=== PATIENT | female | born 1935 | race Caucasian/White ===

== ENCOUNTER 2020-06-04 12:54 | Inpatient (IN) ==
[2020-06-04] MEDS ORDERED: Ondansetron ODT 4 MG TAB.RAPDIS SL PRN (21:24)
[2020-06-04] MEDS: Acetaminophen 325 MG TABLET PO PRN (23:37)
[2020-06-05 06:09] LABS: Basophils % 0.4 %; Eosinophils # 0.3 K/mcL (0.0-0.6); Eosinophils % 4.3 %; Hematocrit 35.9 % (35.3-44.9); Hemoglobin 11.5 g/dL (11.5-15.4); Immature Granulocytes % 0.7 % (0-4); Lymphocytes # 1.4 K/mcL (0.6-4.6); Lymphocytes % 18.3 %; Mean Corpuscular Hemoglobin 30.3 pg (28.0-33.3); Mean Corpuscular Volume 94.7 fL (83.0-100.0); Mean Platelet Volume 11.4 fL (9.4-12.4); Monocytes # 0.7 K/mcL (0.0-1.3); Platelet Count 237 K/mcL (140-400); Red Blood Count 3.79 M/mcL (3.82-4.97); Red Cell Distribution Width 12.9 % (11.5-14.5); Segmented Neutrophils % 67.3 %; White Blood Count 7.4 K/mcL (4.3-11.1)
[2020-06-05 06:22] LABS: BUN/Creatinine Ratio 39 (6-26); Blood Urea Nitrogen 21 mg/dL (8-23); Calcium 8.3 mg/dL (8.6-10.3); Chloride 106 mEq/L (98-107); Glucose 96 mg/dL (70-105); Osmolality,Calculated 293 (280-300); Potassium 3.7 mEq/L (3.5-5.1); Sodium 140 mEq/L (136-145); eGFR For African Americans > 60 (> 60); eGFR For Non-African Americans > 60 (> 60)
[2020-06-05 06:24] LABS: Carbon Dioxide 30 mEq/L (23-29)
[2020-06-05] MEDS: Aspirin 81 MG TAB.CHEW PO SCH (09:09)
[2020-06-06] MEDS: Aspirin 81 MG TAB.CHEW PO SCH (09:55)
[2020-06-06] MEDS: Acetaminophen 325 MG TABLET PO PRN (21:44)
[2020-06-07] MEDS: Aspirin 81 MG TAB.CHEW PO SCH (08:48)
[2020-06-07] MEDS: Acetaminophen 325 MG TABLET PO PRN (21:24)
[2020-06-08] MEDS: Aspirin 81 MG TAB.CHEW PO SCH (09:55)
[2020-06-08] MEDS: rOPINIRole 0.25 MG TABLET PO SCH (21:07)
[2020-06-09] MEDS: Aspirin 81 MG TAB.CHEW PO SCH (08:23)
[2020-06-09] MEDS: rOPINIRole 0.25 MG TABLET PO SCH (19:49)
[2020-06-09] MEDS: Acetaminophen 325 MG TABLET PO PRN (21:55)
[2020-06-10 06:22] LABS: Basophils % 0.6 %; Eosinophils # 0.5 K/mcL (0.0-0.6); Eosinophils % 8.2 %; Hematocrit 35.4 % (35.3-44.9); Hemoglobin 11.4 g/dL (11.5-15.4); Immature Granulocytes % 0.5 % (0-4); Lymphocytes # 1.5 K/mcL (0.6-4.6); Lymphocytes % 22.8 %; Mean Corpuscular HGB Conc 32.2 g/dL (31.6-35.5); Mean Corpuscular Hemoglobin 30.1 pg (28.0-33.3); Mean Corpuscular Volume 93.4 fL (83.0-100.0); Mean Platelet Volume 11.2 fL (9.4-12.4); Monocytes # 0.8 K/mcL (0.0-1.3); Monocytes % 11.8 %; Neutrophils # 3.6 K/mcL (1.6-8.9); Platelet Count 241 K/mcL (140-400); Red Blood Count 3.79 M/mcL (3.82-4.97); Segmented Neutrophils % 56.1 %; White Blood Count 6.4 K/mcL (4.3-11.1)
[2020-06-10 07:09] LABS: BUN/Creatinine Ratio 38 (6-26); Blood Urea Nitrogen 21 mg/dL (8-23); Calcium 8.5 mg/dL (8.6-10.3); Carbon Dioxide 30 mEq/L (23-29); Chloride 104 mEq/L (98-107); Glucose 96 mg/dL (70-105); Osmolality,Calculated 291 (280-300); Potassium 3.8 mEq/L (3.5-5.1); Sodium 139 mEq/L (136-145); eGFR For African Americans > 60 (> 60); eGFR For Non-African Americans > 60 (> 60)
[2020-06-10] MEDS: Aspirin 81 MG TAB.CHEW PO SCH (08:31)
[2020-06-10] MEDS: rOPINIRole 0.25 MG TABLET PO SCH (21:04)
[2020-06-11] MEDS: Aspirin 81 MG TAB.CHEW PO SCH (09:44)
[2020-06-11] MEDS: rOPINIRole 0.25 MG TABLET PO SCH (19:58)
[2020-06-11] MEDS: Acetaminophen 325 MG TABLET PO PRN (19:58)
[2020-06-12] MEDS: Aspirin 81 MG TAB.CHEW PO SCH (08:33)
[2020-06-12] MEDS: Acetaminophen 325 MG TABLET PO PRN (21:21)
[2020-06-12] MEDS: rOPINIRole 0.25 MG TABLET PO SCH (21:22)
[2020-06-13] MEDS: Aspirin 81 MG TAB.CHEW PO SCH (09:15)
[2020-06-13] MEDS: rOPINIRole 0.25 MG TABLET PO SCH (20:29)
[2020-06-14] MEDS: Aspirin 81 MG TAB.CHEW PO SCH (08:47)
[2020-06-14] MEDS ORDERED: *HR* Enoxaparin 80 MG/0.8 ML SYRINGE SQ STA (12:02)
[2020-06-14] MEDS: Acetaminophen 325 MG TABLET PO PRN (12:27)
[2020-06-14] MEDS: rOPINIRole 0.25 MG TABLET PO SCH (20:09)
[2020-06-15] MEDS: Aspirin 81 MG TAB.CHEW PO SCH (07:49)
[2020-06-15] MEDS: rOPINIRole 0.25 MG TABLET PO SCH (20:29)
[2020-06-16 07:16] LABS: Basophils % 0.7 %; Eosinophils # 0.4 K/mcL (0.0-0.6); Eosinophils % 6.6 %; Hematocrit 33.6 % (35.3-44.9); Hemoglobin 11.1 g/dL (11.5-15.4); Immature Granulocytes % 0.3 % (0-4); Lymphocytes # 1.2 K/mcL (0.6-4.6); Lymphocytes % 19.2 %; Mean Corpuscular Hemoglobin 30.9 pg (28.0-33.3); Mean Corpuscular Volume 93.6 fL (83.0-100.0); Mean Platelet Volume 10.9 fL (9.4-12.4); Monocytes # 0.8 K/mcL (0.0-1.3); Neutrophils # 3.7 K/mcL (1.6-8.9); Platelet Count 215 K/mcL (140-400); Red Blood Count 3.59 M/mcL (3.82-4.97); Red Cell Distribution Width 12.9 % (11.5-14.5); Segmented Neutrophils % 60.2 %; White Blood Count 6.1 K/mcL (4.3-11.1)
[2020-06-16 07:30] LABS: BUN/Creatinine Ratio 30 (6-26); Blood Urea Nitrogen 13 mg/dL (8-23); Calcium 8.5 mg/dL (8.6-10.3); Carbon Dioxide 30 mEq/L (23-29); Chloride 102 mEq/L (98-107); Glucose 92 mg/dL (70-105); Osmolality,Calculated 282 (280-300); Potassium 3.7 mEq/L (3.5-5.1); Sodium 136 mEq/L (136-145); eGFR For African Americans > 60 (> 60); eGFR For Non-African Americans > 60 (> 60)
[2020-06-16] MEDS: Aspirin 81 MG TAB.CHEW PO SCH (08:00)
[2020-06-16] MEDS: *HR* HYDROcodone/Acet 5/325 mg TABLET PO PRN ×2 (09:59→18:44)
[2020-06-16] MEDS: rOPINIRole 0.25 MG TABLET PO SCH (20:04)
[2020-06-17] MEDS: *HR* HYDROcodone/Acet 5/325 mg TABLET PO PRN ×2 (05:47→14:53)
[2020-06-17] MEDS: Aspirin 81 MG TAB.CHEW PO SCH (08:19)
[2020-06-17] MEDS: rOPINIRole 0.25 MG TABLET PO SCH (20:31)
[2020-06-17] MEDS: Acetaminophen 325 MG TABLET PO PRN (21:23)
[2020-06-18] MEDS: *HR* HYDROcodone/Acet 5/325 mg TABLET PO PRN ×3 (02:16→20:27)
[2020-06-18] MEDS: Acetaminophen 325 MG TABLET PO PRN (09:26)
[2020-06-18] MEDS: Aspirin 81 MG TAB.CHEW PO SCH (09:26)
[2020-06-18] MEDS: rOPINIRole 0.25 MG TABLET PO SCH (20:27)
[2020-06-19 07:31] VITALS: BP 142/72
[2020-06-19] MEDS: Aspirin 81 MG TAB.CHEW PO SCH (08:34)
[2020-06-19] MEDS: *HR* HYDROcodone/Acet 5/325 mg TABLET PO PRN (10:43)
== END 2020-06-19 11:25 | disposition home health service (06) | DRG 560 ==
LOC: INPPIK 14:18
PROVIDERS: ADMIT Family Medicine; ATTEND Family Medicine